=== PATIENT | female | born 1945 | race Caucasian/White ===

== ENCOUNTER 2021-03-18 10:14 | Observation (INO) ==
[2021-03-18 11:01] LABS: ABS Basophils 0.2 10^3/ul (0-0.2); ABS Eosinophils 0.1 10^3/ul (0-0.6); ABS Lymphocytes 2.2 10^3/ul (1.0-4.8); ABS Monocytes 0.7 10^3/ul (0-0.8); Eosinophil % 1.9 %; Hematocrit 39 % (35-47); Hemoglobin 13.3 g/dL (12.0-16.0); Lymphocyte % 30.4 %; Mean Corpuscular HGB Conc 34 g/dL (31-36); Mean Corpuscular Hemoglobin 30 pg (27-31); Mean Corpuscular Volume 88 fL (80-97); Mean Platelet Volume 8.9 fL (7.4-10.4); Nucleated Red Blood Cells % 0.1; Platelet Count 266 10^3/uL (150-450); Red Cell Distribution Width 14 % (10-15); White Blood Count 7.2 10^3/uL (3.5-10.8)
[2021-03-18 11:26] LABS: Troponin I 0.01 ng/mL (<0.03)
[2021-03-18 11:57] LABS: Albumin 4.5 g/dL (3.2-5.2); Calcium 9.5 mg/dL (8.6-10.3); EGFR African American 86.3 (>60); EGFR Non-African American 71.3 (>60); Globulin 2.2 g/dL (2-4); Potassium 4.1 mmol/L (3.5-5.0); Total Bilirubin 0.6 mg/dL (0.2-1.0); Total Protein 6.7 g/dL (6.4-8.9)
[2021-03-18] MEDS: Enoxaparin 40 MG/0.4 ML SYR SUBCUT SCH (18:38)
[2021-03-18] MEDS ORDERED: diPHENhydraMINE 25 mg TAB PO PRN (19:45)
[2021-03-19] MEDS ORDERED: Regadenoson 0.4 MG/5 ML SYRINGE ONE (07:17)
[2021-03-19] MEDS ORDERED: Perflutren Lipid Microsphere 3 ML VIAL ONE (07:47)
[2021-03-19] MEDS ORDERED: Cholecalciferol (VIT D3) 1,000 unit TAB PO SCH (09:00)
[2021-03-19 10:54] LABS: HDL Cholesterol 51.3 mg/dL
[2021-03-19] MEDS: Enoxaparin 40 MG/0.4 ML SYR SUBCUT SCH (13:01)
[2021-03-19 15:54] VITALS: BP 132/55
== END 2021-03-19 13:45 | disposition home or self-care (01) ==
LOC: ED 10:14 → MEDTELE 10:14
PROVIDERS: ADMIT Internal Medicine; ATTEND Internal Medicine